=== PATIENT | male | born 1960 ===

== ENCOUNTER → 2024-05-25 14:18 | Outpatient (CLI) | payer OTHER, SELFPAY ==
--- NOTE | 2024-05-25 14:22 | DI.ECHO.S_ITS ---
[facility]+ [facility] : : [address] : : [place] : : [id number] : : Phone: [phone] Echocardiogram Report + + :Name: ALEXEI BROWNLEE Study Date: 05/25/2024 Height: 68 in : :[facility] ReadingLocation: Weight: 216 lb : : Gender: Male BSA: 2.1 m2 : :: 1960 Age: 63 yrs BP: 135/84 mmHg: :Reason For Study: OLD INFERIOR IA : :Ordering Physician: : :TIERRA ROBLES Performed By: Omega Moyer : :Referring: TIERRA ROBLES : + + Interpretation Summary Borderline concentric left ventricular hypertrophy with ejection fraction 50- 55%. There is inferior wall mild hypokinesis. Diastolic parameters suggest a relaxation abnormality of the left ventricle, consistent with probable normal filling pressures. No significant valvular abnormality. Comparison is made with the echocardiogram of 04/18/2018, possible new inferior hypokinesis. Procedure: A two-dimensional transthoracic echocardiogram with color flow and Doppler was performed. The study quality was technically adequate. Comparison is made with the echocardiogram of 04/18/2018. The patient was in normal sinus rhythm during the exam. Left Ventricle: The left ventricle is normal in size. There is borderline concentric left ventricular hypertrophy. There is no ventricular septal defect visualized. The ejection fraction is estimated to be 50-55%. There is inferior wall mild hypokinesis. There are no other obvious focal wall motion abnormalities. Diastolic parameters suggest a relaxation abnormality of the left ventricle, consistent with probable normal filling pressures. Right Ventricle: The right ventricle is normal in size and function. Atria: The left atrial size is normal. Right atrial size is normal. There is no Doppler evidence for an atrial septal defect. Mitral Valve: The mitral valve leaflets appear mildly thickened, but open well. The mitral valve leaflets appear to open well. There is trace mitral regurgitation. Aortic Valve: The aortic valve is trileaflet. The aortic valve opens well. There is trace aortic regurgitation. Tricuspid Valve: The tricuspid valve is normal in structure and function. No tricuspid regurgitation. Pulmonic Valve: The pulmonic valve is normal in structure and function. There is trace pulmonic regurgitation. Great Vessels: The aortic root is normal size. The dimensions of the ascending aorta are normal. The pulmonary artery is normal size. The IVC is of normal diameter and collapses greater than 50% with a sniff. This suggests a low right atrial pressure of 3 mm Hg. Pericardium/ Pleura There is no pericardial effusion. There is no pleural effusion. MMode/2D Measurements & Calculations LVIDd: 5.0 cm LVOT diam: 2.1 cm LVIDs: 4.3 cm Ao root diam: 3.3 cm FS: 14.8 % asc Aorta Diam: 3.7 cm EPSS: 1.3 cm IVSd: 1.1 cm LVPWd: 1.3 cm LV stubbs. diameter/BSA (cm/m^2): 2.4 LV sys. diameter/BSA (cm/m^2): 2.0 LA A2 area: 16.7 cm2 RA long axis: 4.7 cm LA A4 area: 15.8 cm2 RA area: 11.3 cm2 LA length (vol): 4.9 cm RA vol: 23.0 ml LA vol: 46.2 ml RA : 10.9 ml/m2 LA vol index: 21.9 ml/m2 IVC diam: 1.8 cm RVD2 (mid): 3.3 cm TAPSE: 2.4 cm Doppler Measurements & Calculations Ao V2 max: 151.2 cm/sec LVOT Max Efren: 83.3 cm/sec Ao V2 mean: 109.3 cm/sec LV V1 max P.8 mmHg Ao max P.1 mmHg LV V1 VTI: 17.4 cm Ao mean P.3 mmHg MARSHALL(I,D): 1.9 cm2 Ao V2 VTI: 33.3 cm MARSHALL(V,D): 2.0 cm2 sev ratio: 0.52 MARSHALL indexed to BSA (cm^2/m^2): 0.89 MV E max efren: 45.6 cm/sec PA V2 max: 107.7 cm/sec MV A max efren: 83.5 cm/sec PA V2 mean: 75.5 cm/sec MV E/A: 0.55 PA mean P.5 mmHg Med Peak E' Efren: 3.7 cm/sec PA pr(Accel): 32.8 mmHg E/E' med: 12.5 Lat Peak E' Efren: 3.6 cm/sec E/E' lat: 12.8 E/e' average: 12.6 MV dec time: 0.12 sec SV(LVOT): 62.2 ml Electronically signed by: Tierra [place] on Reading Physician:05/25/2024 07:07 PM
== END ==
PROVIDERS: Referring Provider Internal Medicine Interventional Cardiology; Visit Provider Internal Medicine Interventional Cardiology
DX: I25.2 Old myocardial infarction (principal)
CPT/HCPCS: 93306